=== PATIENT | male | born 1985 | race Caucasian/White ===

== ENCOUNTER 2021-01-07 16:56 | Emergency (ER) | payer MEDICAID ==
--- NOTE | 2021-01-07 17:40 | EDM.PDOC ---
ED HPI GENERAL MEDICAL PROBLEM - General Chief Complaint: Lower Extremity Injury/Pain Stated Complaint: RT LEFT INJURY Time Seen by Provider: 01/07/21 17:14 - History of Present Illness INITIAL COMMENTS - FREE TEXT/NARRATIVE: Otherwise well 35-year-old male presents with right lateral ankle pain. 3 days ago the patient was playing with family he jumped off a swing felt a pop and had immediate pain in the high ankle. He has been using crutches he is able to range the ankle but has moderate pain on the right lateral side and has noted significant swelling ecchymosis or presents for evaluation. No fall no knee pain no hip pain no head pain no back pain. He otherwise feels well. Pain minimal except with ambulation and direct pressure. right ankle/whittaker Pain Score (Numeric/FACES): 5 - Related Data Allergies Allergy/AdvReac Type Severity Reaction Status Date / Time No Known Allergies Allergy Verified 01/07/21 17:12 Home Meds: Home Meds Venlafaxine [Effexor] mg PO DAILY 01/07/21 [History] Past Medical History Psychiatric History: Reports: Depression - Infectious Disease History Infectious Disease History: Reports: None Social & Family History - Family History Family Medical History: No Pertinent Family History - Tobacco Use Tobacco Use Status *Q: Never Tobacco User - Caffeine Use Caffeine Use: Reports: Coffee - Recreational Drug Use Recreational Drug Use: Yes Recreational Drug Type: Reports: Marijuana/Hashish Recreational Drug Use Frequency: Rarely Review of Systems - Review of Systems Review Of Systems: See Below Constitutional: Reports: No Symptoms Musculoskeletal: Reports: Other (Per HPI) Skin: Reports: Other (Per HPI) Neurological: Reports: No Symptoms ED EXAM, GENERAL - Physical Exam Exam: See Below Free Text/Narrative:: General Appearance: No acute distress, appears comfortable Skin: No rash HEENT: Normocephalic/atraumatic, sclera anicteric, mucous membranes moist Neck: Normal range of motion Musculoskeletal: 2+ right DP pulse. No foot swelling or tenderness no tenderness at the base of the fifth metatarsal. There is some significant ecchymosis and mild edema over the lateral malleolus. Patient with minimal lateral malleolus tenderness but more tenderness along the distal fibula. Flexion and extension of the ankle is full and minimally painful passive eversion minimally painful active passive inversion worsens pain. No proximal fibula pain. Psychiatric: Appropriate, cooperative ED TRAUMA EXTREMITY PROCEDURES - Splinting Right Lower Extremity Splint Site: Right ankle Pre-Procedure NV Status: Normal Post-Procedure NV Status: Normal Splint Material: Other (Ortho-Glass) Splint Design: Stirrup, Other (In short leg post mold) Applied & Form Fitted By: Nurse Provider Post-Splint Application NV Check: NV Status Normal Complications: No Course - Vital Signs Last Recorded V/S: Last Vital Signs Temp 97.8 F 01/07/21 17:13 Pulse 103 H 01/07/21 17:13 Resp 16 01/07/21 17:13 BP 139/72 01/07/21 17:13 Pulse Ox 95 01/07/21 17:13 - Orders/Labs/Meds Orders: Active Orders 24 hr Category Date Time Status Ankle Min 3V Rt [CR] Stat Exams 01/07/21 17:17 Taken Departure - Departure Time of Disposition: 18:26 Disposition: Home, Self-Care 01 Condition: Good Clinical Impression: Fracture of distal fibula - Discharge Information *PRESCRIPTION DRUG MONITORING PROGRAM REVIEWED*: Not Applicable *COPY OF PRESCRIPTION DRUG MONITORING REPORT IN PATIENT SURAJ: Not Applicable Instructions: Ankle Fracture Referrals: PCP,None [Primary Care Provider] - Forms: ED Department Discharge Additional Instructions: As we discussed it is very important that you follow-up with an orthopedic surgeon. If this fracture is not appropriately manage it can lead to lifelong problems with your leg. Please be sure to keep the splint dry at all times if it gets wet it will fall apart. Please call Dr. Muller's office tomorrow. If you are unable to see him for financial reasons it is very important that you return to [place] to receive prompt attention for your ankle. Dr. Muller (orthopedic surgeon with [facility] in [facility]) Office The following information is given to patients seen in the emergency department who are being discharged to home. This information is to outline your options for follow-up care. We provide all patients seen in our emergency department with a follow-up referral. The need for follow-up, as well as the timing and circumstances, are variable depending upon the specifics of your emergency department visit. If you don't have a primary care physician on staff, we will provide you with a referral. We always advise you to contact your personal physician following an emergency department visit to inform them of the circumstance of the visit and for follow-up with them and/or the need for any referrals to a consulting specialist. The emergency department will also refer you to a specialist when appropriate. This referral assures that you have the opportunity for follow-up care with a specialist. All of these measure are taken in an effort to provide you with optimal care, which includes your follow-up. Under all circumstances we always encourage you to contact your private physician who remains a resource for coordinating your care. When calling for follow-up care, please make the office aware that this follow-up is from your recent emergency room visit. If for any reason you are refused follow-up, please contact the [facility] Emergency Department at and asked to speak to the emergency department charge nurse. Sepsis Event Note (ED) - Evaluation Sepsis Screening Result: No Definite Risk - Focused Exam Vital Signs: Vital Signs Temp Pulse Resp BP Pulse Ox 01/07/21 17:13 97.8 F 103 H 16 139/72 95 - My Orders Last 24 Hours: My Active Orders 01/07/21 17:17 Ankle Min 3V Rt [CR] Stat - Assessment/Plan Last 24 Hours: My Active Orders 01/07/21 17:17 Ankle Min 3V Rt [CR] Stat Assessment:: 35-year-old male with distal fibula fracture versus ankle sprain. X-ray pending. No proximal fibula tenderness no indication for any x-ray. No other signs of injury. 1825: Pt's XR demonstrates a distal fibula fracture. We do not have orthopedic surgery in [place] for at least the next few weeks. The patient states that he only has insurance in [place]. We discussed the importance of prompt follow- up with orthopedic surgery we discussed the potential danger of joint instability if there is any ankle mortise widening. He expresses understanding of this. The patient will be placed in a short leg posterior mold splint with a supporting stirrup. I was able to call [facility] in my not and get referral information for orthopedic surgery. The patient will call their office tomorrow to see if he is able to see them. If this is cost prohibitive then he will go back to [place] in order to see a surgeon that is covered by his insurance. Standard splint and crutch precautions discussed and understood.
--- NOTE | 2021-01-07 19:07 | CR ---
Indication: Ankle injury, tenderness, ecchymosis over lateral ankle Technique: Three views of the right ankle Comparison: None Findings/Impression: Acute obliquely oriented minimally displaced fracture through the distal fibula, at or slightly above the level of the distal tibiofibular joint. No evidence of distal tibial fracture. No appreciable ankle joint space asymmetry. Ankle joint effusion is present. Soft tissue edema is noted over the lateral malleolus. Dictated by Shahana Marino MD @ Jan 07 2021 7:05PM Signed by Dr. Shahana Marino @ Jan 07 2021 7:05PM
== END 2021-01-07 18:51 | disposition home or self-care (01) ==
LOC: MW.ED 16:56
DX: S82.831A Other fracture of upper and lower end of right fibula, initial encounter for closed fracture (principal); W09.1XXA Fall from playground swing, initial encounter; Z79.899 Other long term (current) drug therapy
CPT/HCPCS: 29125; 29515; 73610-26-RT; 73610-RT; 99283; 99283-25